=== PATIENT | male | born 1995 | race African-American/Black ===

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

== ENCOUNTER 2017-09-15 22:34 | Emergency (ER) | payer OTHER ==
[~2017-09-15] VITALS: Ht 182.9 cm; Wt 83.9 kg
--- NOTE | ~2017-09-15 | EKG ---
[place] [address] [facility] [place] [address] ELECTROCARDIOGRAM REPORT Name: ZEKE RINCONQUISE [id number] Admission: 09/15/17 Attend Phys: Discharge: 09/15/17 Date of : [birth year] Report #: [id number] THIS REPORT FOR: //name// 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 Requested By: John Simon Order Number: [id number] MD: Remberto Escobar Measurements Intervals [place] Rate: 66 P: -25 VA: 139 QRS: 67 QRSD: 85 T: -2 QT: 386 QTc: 405 Interpretive Statements Sinus rhythm Consider left atrial enlargement Borderline T abnormalities, inferior leads ST elev, probable normal early repol pattern No previous ECG available for comparison Electronically Signed On 09-16-2017 8:17:53 CDT by Remberto Escobar [email or web address] <ELECTRONICALLY SIGNED> By: Remberto Escobar MD, [facility] 09/16/17 0817 D: [id number] Remberto Escobar MD, FACC /EPI
[~2017-09-15 22:34] MED LIST changes: +MOBIC7.5 MG PO; +TOPAMAX 25 MG T25 M1 PO
[2017-09-15 22:36] VITALS: BP 140/77
[2017-09-15] MEDS ORDERED: HYDROXYZINE HCL25 M1 PO (23:19)
== END 2017-09-15 23:30 | disposition home or self-care (01) ==
LOC: ER 22:34
DX: F41.0 Panic disorder [episodic paroxysmal anxiety] (principal); G43.909 Migraine, unspecified, not intractable, without status migrainosus

== ENCOUNTER 2017-12-27 19:19 | Emergency (ER) | payer OTHER ==
[~2017-12-27] VITALS: Ht 182.9 cm; Wt 81.7 kg
--- NOTE | ~2017-12-27 | EKG ---
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 Requested By: Carmen Singletary Order Number: [id number] MD: Remberto Escobar Measurements Intervals [place] Rate: 66 P: 32 RI: 143 QRS: 66 QRSD: 85 T: -28 QT: 387 QTc: 406 Interpretive Statements Sinus rhythm Abnormal T, diffuse leads Borderline ST elevation, consider early repolarization Compared to ECG 09/15/2017 23:03:45 T-wave abnormality more prominent Electronically Signed On 12-28-2017 7:34:32 PRINTING MACHINE OPERATOR by Remberto Escobar [email or web address] <ELECTRONICALLY SIGNED> By: Remberto Escobar MD, [facility] 12/28/17 0734 23 23 Remberto Escobar MD, [facility] /EPI
--- NOTE | ~2017-12-27 | EKG ---
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 Requested By: Carmen Singletary Order Number: [id number] MD: Remberto Escobar Measurements Intervals [place] Rate: 63 P: -7 MD: 162 QRS: 72 QRSD: 88 T: -34 QT: 390 QTc: 400 Interpretive Statements Sinus rhythm Repol abnrm suggests ischemia, inferior leads Borderline ST elevation, consider early repolarization Compared to ECG 09/15/2017 23:03:45 No significant change was found Electronically Signed On 12-28-2017 7:42:06 MOTORBOAT MECHANIC HELPER by Remberto Escobar [email or web address] <ELECTRONICALLY SIGNED> By: Remberto Escobar MD, [facility] 12/28/17 0742 57 57 Remberto Escobar MD, [facility] /EPI
[~2017-12-27 19:19] MED LIST changes: +HYDROXYZINE HCL25 M1 PO
[2017-12-27 20:53] LABS: HEMATOCRIT 43.2 % (42.0-52.0); HEMOGLOBIN 14.5 gm/dL (14.0-18.0); MCH 26.8 pg (26.0-34.0); MCHC 33.6 g/dL (28.0-37.0); MCV 79.9 fL (80.0-100.0); RBC 5.41 mil/uL (4.50-6.00); RDW 13.9 % (10.5-14.5); WBC 5.8 thou/uL (4.0-11.0)
[2017-12-27 21:04] LABS: ANION GAP 6 mmol/L (7-16); BUN 10 mg/dL (7-18); CALCIUM 9.7 mg/dL (8.5-10.1); CHLORIDE 101 mmol/L (98-107); CO2 31 mmol/L (21-32); GLUCOSE 98 mg/dL (74-106); POTASSIUM 3.9 mmol/L (3.5-5.1); SODIUM 138 mmol/L (136-145)
[2017-12-27 21:13] LABS: TROPONIN-I <0.06 ng/mL (<0.06)
[2017-12-27] MEDS ORDERED: MOBIC7.5 MG PO (21:25)
== END 2017-12-27 21:41 | disposition home or self-care (01) ==
LOC: ER 19:19
PROVIDERS: Physician Assistant
DX: R07.89 Other chest pain (principal); G43.909 Migraine, unspecified, not intractable, without status migrainosus